=== PATIENT | female | born 1975 | race Caucasian/White ===

== ENCOUNTER 2020-09-21 13:59 | Emergency (ER) | payer OTHER ==
[~2020-09-21 13:59] MED LIST: ASPIRIN325 MG PO; PERCOCET 5-3251 EACH PO
[2020-09-21] MEDS ORDERED: AMOXICILLIN500 MG PO (14:47)
== END 2020-09-21 15:07 | disposition home or self-care (01) ==
LOC: FER 13:59
DX: J02.0 Streptococcal pharyngitis (principal)
CPT/HCPCS: 87880; 99283